=== PATIENT | male | born 2000 | race Caucasian/White ===

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

== ENCOUNTER 2020-06-22 15:11 | Emergency (ER) | payer OTHER ==
[2020-06-22 15:17] VITALS: TEMP 98.6
[2020-06-22] MEDS ORDERED: HYDROmorphone 1 MG/ML 1 ML SYRINGE IM STA (15:46)
--- NOTE | 2020-06-22 15:49 | ED ---
Lower Extremity Injury HPI - General Chief Complaint: Extremity Injury, Lower Stated Complaint: [facility] - lt leg injury Time Seen by Provider: 06/22/20 15:30 Source: patient, RN notes reviewed Mode of arrival: wheelchair Limitations: no limitations - History of Present Illness Initial Comments: 19-year-old male presents emergency Department chief complaint left-sided leg injury. Patient states she was on outpatient machinery which she backed up into another piece of machinery. Patient complains of left foot and ankle pain. Patient states her swelling. No paresthesias. Patient has an abrasion by his knee which is not painful. Patient states his difficulty and weight secondary to pain no paresthesias. No other injuries noted. No prior fractures. - Related Data Home Medications Medication Instructions Recorded Confirmed guanFACINE HCL [Intuniv] 2 mg PO DAILY 09/29/16 09/29/16 Previous Rx's Medication Instructions Recorded Ibuprofen [Motrin] 600 mg PO Q8HR PRN #20 tab 06/22/20 Allergies Allergy/AdvReac Type Severity Reaction Status Date / Time No Known Allergies Allergy Verified 06/22/20 15:17 Review of Systems ROS Statement: Those systems with pertinent positive or pertinent negative responses have been documented in the HPI. ROS Other: All systems not noted in ROS Statement are negative. Past Medical History Past Medical History: Renal Disease History of Any Multi-Drug Resistant Organisms: None Reported Past Surgical History: Appendectomy Additional Past Surgical History / Comment(s): kidney stones Past Psychological History: No Psychological Hx Reported Smoking Status: Current every day smoker Past Alcohol Use History: None Reported Past Drug Use History: Marijuana General Exam Limitations: no limitations General appearance: alert, in no apparent distress Head exam: Present: atraumatic, normocephalic, normal inspection Respiratory exam: Present: normal lung sounds bilaterally. Absent: respiratory distress, wheezes, rales, rhonchi, stridor Cardiovascular Exam: Present: normal rhythm, tachycardia, normal heart sounds. Absent: systolic murmur, diastolic murmur, rubs, gallop, clicks Extremities exam: Present: other (There is an abrasion just proximal to the left knee patient's full range of motion nontender, there is moderate swelling and tenderness the distal tib-fib over the malleoli region and distal foot. Neurovascular intact) Course Vital Signs 06/22/20 15:12 Temperature 98.6 F Pulse Rate 115 H Respiratory 22 Rate Blood Pressure 180/79 O2 Sat by Pulse 98 Oximetry Medical Decision Making - Medical Decision Making X-rays were reviewed there are no acute fracture. Patient has leg contusion, ankle sprain. Patient's will be discharged in stable condition return parameters were discussed. Disposition Clinical Impression: Contusion of left leg, Ankle sprain Disposition: HOME SELF-CARE Condition: Stable Instructions (If sedation given, give patient instructions): Ankle Sprain (ED) Additional Instructions: Please return to the Emergency Department if symptoms worsen or any other concerns. Prescriptions: Ibuprofen [Motrin] 600 mg PO Q8HR PRN #20 tab PRN Reason: Pain Is patient prescribed a controlled substance at d/c from ED?: No Referrals: None,Stated [Primary Care Provider] - 1-2 days Kranthi Friedman MD [STAFF PHYSICIAN] - 1-2 days Time of Disposition: 16:25
--- NOTE | 2020-06-22 16:22 | XR ---
EXAMINATION TYPE: XR ankle complete LT DATE OF EXAM: 06/22/2020 COMPARISON: NONE HISTORY: Pain FINDINGS: Three views of the ankle demonstrate the ankle mortise to be intact and symmetric. The joint spaces are preserved. The osseous structures are intact. IMPRESSION: 1. No definite acute fracture or dislocation, if symptoms persist follow-up study in 7 to 10 days wou ld be suggested.
--- NOTE | 2020-06-22 16:22 | XR ---
EXAMINATION TYPE: XR foot complete LT DATE OF EXAM: 06/22/2020 COMPARISON: NONE HISTORY: Pain TECHNIQUE: Three views are submitted. FINDINGS: The osseous structures are intact. There is no acute fracture or dislocation. Joint spaces are p reserved. Pes planus deformity. IMPRESSION: 1. No acute fracture or dislocation. If symptoms persist, follow-up exam in 7 to 10 days could be ob tained.
[2020-06-22] MEDS ORDERED: ACET/COD 300 MG/30 MG STARTER PACK 6 TAB BTL PO STA (16:25)
[2020-06-22 16:59] VITALS: BP 169/70; PULSE 75; RESP 18
== END 2020-06-22 16:59 | disposition home or self-care (01) ==
LOC: EC 15:11
DX: S93.402A Sprain of unspecified ligament of left ankle, initial encounter (principal); S80.12XA Contusion of left lower leg, initial encounter; F17.200 Nicotine dependence, unspecified, uncomplicated; W22.09XA Striking against other stationary object, initial encounter; Y92.69 Other specified industrial and construction area as the place of occurrence of the external cause; Y99.0 Civilian activity done for income or pay
CPT/HCPCS: 73610; 73630; 99283; 96372; J1170

== ENCOUNTER 2021-09-26 03:35 | Emergency (ER) | payer OTHER ==
[2021-09-26 03:41] VITALS: BP 154/66; PULSE 111; RESP 20; TEMP 98.3
--- NOTE | 2021-09-26 04:17 | XR ---
EXAMINATION TYPE: XR forearm RT DATE OF EXAM: 09/26/2021 COMPARISON: NONE HISTORY: Foreign body TECHNIQUE: 2 views FINDINGS: There is a somewhat rounded 12 mm radiopaque foreign body projected in the soft tissues pos terior to the distal ulna. The elbow joint and wrist joint appear intact. The remainder of the exam i s unremarkable. IMPRESSION: Superficial foreign body in the posterior distal right forearm.
[2021-09-26] MEDS ORDERED: LIDOCAINE 1% INJ 10MG/ML (20 ML MDV) SQ ONE (04:24)
--- NOTE | 2021-09-26 04:43 | ED ---
Wound/Laceration HPI - General Chief Complaint: Wound/Laceration Stated Complaint: Right wrist injury Time Seen by Provider: 09/26/21 04:06 Source: patient Mode of arrival: ambulatory Limitations: no limitations - History of Present Illness Initial Comments: This patient is 20-year-old man who states that he went to sleep glass object off a table using his forearm and it broke resulting in laceration to the forearm. Onset/Timin -: hour(s) Extremity Location: Right: Forearm Place: home Patient Tetanus UTD: Yes Context: accidental Associated Symptoms: none - Related Data Home Medications Medication Instructions Recorded Confirmed No Known Home Medications 09/26/21 09/26/21 Allergies Allergy/AdvReac Type Severity Reaction Status Date / Time No Known Allergies Allergy Verified 09/26/21 03:41 Review of Systems ROS Statement: Those systems with pertinent positive or pertinent negative responses have been documented in the HPI. ROS Other: All systems not noted in ROS Statement are negative. Constitutional: Denies: fever, chills Past Medical History Past Medical History: Renal Disease History of Any Multi-Drug Resistant Organisms: None Reported Past Surgical History: Appendectomy Additional Past Surgical History / Comment(s): kidney stones Past Psychological History: No Psychological Hx Reported Smoking Status: Current every day smoker Past Alcohol Use History: None Reported Past Drug Use History: Marijuana General Exam Limitations: no limitations General appearance: alert, in no apparent distress Extremities exam: Present: other (Stellate laceration right forearm. There is glass foreign body evident.) Skin exam: Present: warm, dry, normal color, other (Laceration as above). Absent: rash Course Vital Signs 09/26/21 03:38 Temperature 98.3 F Pulse Rate 111 H Respiratory 20 Rate Blood Pressure 154/66 O2 Sat by Pulse 99 Oximetry Procedures - Laceration Laceration #1 Consent Obtained: verbal consent Indication: laceration Site: upper extremity Description: stellate Depth: simple, single layer Anesthetic Used: lidocaine 1% Anesthesia Technique: local infiltration Pre-repair: foreign body removed Type of Sutures: nylon Size of Sutures: 4-0 Number of Sutures: 7 Technique: simple, interrupted Patient Tolerated Procedure: well, no complications Disposition Clinical Impression: Laceration, Foreign body (FB) in soft tissue Disposition: HOME SELF-CARE Condition: Good Instructions (If sedation given, give patient instructions): Laceration (ED), Soft Tissue Foreign Body (ED) Is patient prescribed a controlled substance at d/c from ED?: No Referrals: None,Stated [Primary Care Provider] - 1-2 days Maximiliano Garsia MD [STAFF PHYSICIAN] - 1-2 days
[2021-09-26] MEDS ORDERED: BACITRACIN OINT 1 EACH PACKET TOPICAL ONE (05:10)
== END 2021-09-26 05:27 | disposition home or self-care (01) ==
LOC: EC 03:35
DX: S51.821A Laceration with foreign body of right forearm, initial encounter (principal); F17.200 Nicotine dependence, unspecified, uncomplicated; F12.90 Cannabis use, unspecified, uncomplicated; W25.XXXA Contact with sharp glass, initial encounter
CPT/HCPCS: 73090; 99283; 12031; J2001

== ENCOUNTER 2024-03-29 23:58 | Emergency (ER) | payer SELFPAY ==
[2024-03-30 00:01] VITALS: TEMP 98
--- NOTE | 2024-03-30 00:40 | ED ---
Upper Extremity HPI - General Source: patient, RN notes reviewed Mode of arrival: ambulatory Limitations: no limitations <Marzena Angeles - Last Filed: 03/30/24 05:14> <Bill Rosales - Last Filed: 04/01/24 06:55> - General Chief Complaint: Extremity Injury, Upper Stated Complaint: ELBOW/ARM PAIN Time Seen by Provider: 03/30/24 00:38 - History of Present Illness Initial Comments: 23-year-old male presenting for right elbow injury 1 hour ago. States he was wrestling with his nephew and his nephew accidentally hit him in the elbow. He felt immediate pain in the right elbow and is having difficulty moving his elbow. Denies numbness or tingling. (Marzena Angeles) - Related Data Home Medications Medication Instructions Recorded Confirmed No Known Home Medications 09/26/21 09/26/21 Allergies Allergy/AdvReac Type Severity Reaction Status Date / Time No Known Allergies Allergy Verified 03/30/24 00:01 Review of Systems ROS Other: All systems not noted in ROS Statement are negative. <Marzena Angeles - Last Filed: 03/30/24 05:14> ROS Other: All systems not noted in ROS Statement are negative. <Bill Rosales - Last Filed: 04/01/24 06:55> ROS Statement: Those systems with pertinent positive or pertinent negative responses have been documented in the HPI. Past Medical History Past Medical History: Renal Disease History of Any Multi-Drug Resistant Organisms: None Reported Past Surgical History: Appendectomy Additional Past Surgical History / Comment(s): kidney stones Past Psychological History: No Psychological Hx Reported Smoking Status: Current every day smoker Past Alcohol Use History: None Reported Past Drug Use History: Marijuana <Marzena Angeles - Last Filed: 03/30/24 05:14> General Exam Limitations: no limitations General appearance: alert, in no apparent distress Head exam: Present: atraumatic, normocephalic, normal inspection Right Upper Arm exam: Present: normal inspection, full ROM. Absent: tenderness, swelling Elbow exam: Present: full ROM, tenderness, swelling Forearm Wrist exam: Present: normal inspection, full ROM. Absent: tenderness, swelling Hand Wrist exam: Present: normal inspection, full ROM. Absent: tenderness, swelling Vascular: Present: normal capillary refill, radial pulse. Absent: vascular compromise (Sensation intact) <Marzena Angeles - Last Filed: 03/30/24 05:14> Course Vital Signs 03/29/24 03/30/24 23:59 04:01 Temperature 98 F Pulse Rate 66 48 L Respiratory 18 22 Rate Blood Pressure 158/54 169/96 O2 Sat by Pulse 100 100 Oximetry Medical Decision Making <Marzena Angeles - Last Filed: 03/30/24 05:14> - Medical Decision Making Was pt. sent in by a medical professional or institution (, [facility], BUILDING CERTIFIER, urgent care, hospital, or intermediate...) When possible be specific @ -No Did you speak to anyone other than the patient for history (EMS, parent, family, police, friend...)? What history was obtained from this source @ -No Did you review nursing and triage notes (agree or disagree)? Why? @ -I reviewed and agree with nursing and triage notes Were old charts reviewed (outside hosp., previous admission, EMS record, old EKG, old radiological studies, urgent care reports/EKG's, intermediate records)? Report findings @ -No old charts were reviewed Differential Diagnosis (chest pain, altered mental status, abdominal pain women, abdominal pain men, vaginal bleeding, weakness, fever, dyspnea, syncope, headache, dizziness, GI bleed, back pain, seizure, CVA, palpatations, mental health, musculoskeletal)? @ -Differential Musculoskeletal Muscular strain, contusion, ligament sprain, fracture, arthritis, septic arthritis, bursitis, cellulitis, muscle spasm, nerve compression, DVT, arterial occlusion, herpes zoster, electrolyte abnormality, tumor.... This is not meant to be in all inclusive list EKG interpreted by me (3pts min.). @ -None X-rays interpreted by me (1pt min.). @ -X-ray of right elbow reveals no acute process, there is mild soft tissue swelling CT interpreted by me (1pt min.). @ -None done U/S interpreted by me (1pt. min.). @ -None done What testing was considered but not performed or refused? (CT, X-rays, U/S, labs)? Why? @ -None What meds were considered but not given or refused? Why? @ -None Did you discuss the management of the patient with other professionals (professionals i.e. , [facility], BUILDING CERTIFIER, lab, RT, psych nurse, social service coordinator, dye range operator, teacher, residential care officer, manager rn case)? Give summary @ -No Was smoking cessation discussed for >3mins.? @ -No Was critical care preformed (if so, how long)? @ -No Were there social determinants of health that impacted care today? How? (Homelessness, low income, unemployed, alcoholism, drug addiction, transportation, low edu. Level, literacy, decrease access to med. care, usp, rehab)? @ -No Was there de-escalation of care discussed even if they declined (Discuss DNR or withdrawal of care, Hospice)? DNR status @ -No What co-morbidities impacted this encounter? (DM, HTN, Smoking, COPD, CAD, Cancer, CVA, ARF, Chemo, Hep., AIDS, mental health diagnosis, sleep apnea, morbid obesity)? @ -None Was patient admitted / discharged? Hospital course, mention meds given and route, prescriptions, significant lab abnormalities, going to OR and other pertinent info. @ -Patient was discharged. Patient was seen and evaluated for right elbow injury 1 hour prior to arrival. Patient is neurovascularly intact. X-ray reveals no acute process. Patient was given IM morphine for pain. Discussed diagnosis of right elbow sprain with patient. Supportive care discussed. Strict return parameters discussed with patient and he is agreeable to plan. Patient was discharged with analgesics. Case was discussed with my ED attending Dr. Rosales. Patient discharged in stable condition. Undiagnosed new problem with uncertain prognosis? @ -No Drug Therapy requiring intensive monitoring for toxicity (Heparin, Nitro, Insulin, Cardizem)? @ -No Were any procedures done? @ -No Diagnosis/symptom? @ -Right elbow sprain Acute, or Chronic, or Acute on Chronic? @ -Acute Uncomplicated (without systemic symptoms) or Complicated (systemic symptoms)? @ -Uncomplicated Side effects of treatment? @ -No Exacerbation, Progression, or Severe Exacerbation? @ -No Poses a threat to life or bodily function? How? (Chest pain, [place], [place], pneumonia, PE, COPD, DKA, ARF, appy, cholecystitis, CVA, Diverticulitis, Homicidal, Suicidal, threat to staff... and all critical care pts) @ -No (Marzena Angeles) Disposition Is patient prescribed a controlled substance at d/c from ED?: No Time of Disposition: 03:53 <Marzena Angeles - Last Filed: 03/30/24 05:14> <Bill Rosales - Last Filed: 04/01/24 06:55> Clinical Impression: Sprain of right elbow Disposition: HOME SELF-CARE Condition: Stable Instructions (If sedation given, give patient instructions): Elbow Sprain (ED) Additional Instructions: Ice and elevate the right elbow. Take anti-inflammatories such as ibuprofen. Please return to the Emergency Department if symptoms worsen or any other concerns. Referrals: None,Stated [Primary Care Provider] - 1-2 days
[2024-03-30] MEDS: MORPHINE SULFATE 4 MG/ML SYRINGE IM STA (00:57)
--- NOTE | 2024-03-30 03:31 | XR ---
EXAM: XR Right Elbow Complete, 3 or More Views CLINICAL HISTORY: ITS.REASON XR Reason: right elbow injury TECHNIQUE: Frontal, lateral and oblique views of the right elbow. COMPARISON: No relevant prior studies available. FINDINGS: Bones/joints: Unremarkable. No acute fracture. No dislocation. Soft tissues: Mild posterior soft tissue swelling. IMPRESSION: Mild posterior soft tissue swelling. No fracture or dislocation.
[2024-03-30] MEDS: ACET/COD 300 MG/30 MG STARTER PACK 6 TAB BTL PO STA (03:59)
[2024-03-30 04:26] VITALS: BP 169/96; PULSE 48; RESP 22
== END 2024-03-30 04:01 | disposition home or self-care (01) ==
LOC: EC 23:58
DX: S53.401A Unspecified sprain of right elbow, initial encounter (principal); F17.200 Nicotine dependence, unspecified, uncomplicated; F12.90 Cannabis use, unspecified, uncomplicated; Y93.72 Activity, wrestling
CPT/HCPCS: 73080; 99283; 96372; J2270

== ENCOUNTER 2025-03-06 01:40 | Emergency (ER) | payer OTHER ==
[2025-03-06 01:48] VITALS: BP 142/77; PULSE 81; RESP 18; TEMP 99.9
--- NOTE | 2025-03-06 02:39 | ED ---
General Adult HPI - General Chief complaint: ENT Stated complaint: sore throat Time Seen by Provider: 03/06/25 01:59 Source: patient, RN notes reviewed Mode of arrival: ambulatory Limitations: no limitations - History of Present Illness Initial comments: 24-year-old male presents to the emergency department for evaluation of sore throat. He notes that this started yesterday. He states that it is painful when he swallows. He denies significant cough. He denies any known fever at home but does report feeling chills. Endorses nasal congestion as well. - Related Data Previous Rx's Medication Instructions Recorded Amoxicillin 875 mg PO Q12HR #20 tablet 03/06/25 Allergies Allergy/AdvReac Type Severity Reaction Status Date / Time No Known Allergies Allergy Verified 03/06/25 01:49 Review of Systems ROS Statement: Those systems with pertinent positive or pertinent negative responses have been documented in the HPI. ROS Other: All systems not noted in ROS Statement are negative. Past Medical History Past Medical History: Renal Disease History of Any Multi-Drug Resistant Organisms: None Reported Past Surgical History: Appendectomy Additional Past Surgical History / Comment(s): kidney stones Past Psychological History: No Psychological Hx Reported Smoking Status: Current every day smoker Past Alcohol Use History: None Reported Past Drug Use History: Marijuana General Exam Limitations: no limitations General appearance: alert, in no apparent distress Head exam: Present: atraumatic, normocephalic, normal inspection Eye exam: Present: normal appearance, PERRL, EOMI. Absent: scleral icterus, conjunctival injection, periorbital swelling ENT exam: Absent: normal oropharynx (Erythematous oropharynx with tonsillar exudate) Neck exam: Present: normal inspection. Absent: tenderness, meningismus, lymphadenopathy Respiratory exam: Present: normal lung sounds bilaterally. Absent: respiratory distress, wheezes, rales, rhonchi, stridor Cardiovascular Exam: Present: regular rate, normal rhythm, normal heart sounds. Absent: systolic murmur, diastolic murmur, rubs, gallop, clicks GI/Abdominal exam: Present: soft. Absent: distended, tenderness, guarding, rebound, rigid Neurological exam: Present: alert, oriented X3 Psychiatric exam: Present: normal affect, normal mood Skin exam: Present: warm, dry, intact, normal color. Absent: rash Course Vital Signs 03/06/25 01:46 Temperature 99.9 F H Pulse Rate 81 Respiratory 18 Rate Blood Pressure 142/77 O2 Sat by Pulse 98 Oximetry Medical Decision Making - Medical Decision Making Was pt. sent in by a medical professional or institution (VERONICA Arceo, PRINCIPAL STATISTICAL PROGRAMMER, urgent care, hospital, or correction...) When possible be specific @ -No Did you speak to anyone other than the patient for history (EMS, parent, family, police, friend...)? What history was obtained from this source @ -No Did you review nursing and triage notes (agree or disagree)? Why? @ -I reviewed and agree with nursing and triage notes Were old charts reviewed (outside hosp., previous admission, EMS record, old EKG, old radiological studies, urgent care reports/EKG's, correction records)? Report findings @ -No old charts were reviewed Differential Diagnosis (chest pain, altered mental status, abdominal pain women, abdominal pain men, vaginal bleeding, weakness, fever, dyspnea, syncope, headache, dizziness, GI bleed, back pain, seizure, CVA, palpatations, mental health, musculoskeletal)? @ -Differential Fever: Pneumonia, viral URI, endocarditis, myocarditis, pericarditis, otitis, sinusitis, peritonsillar Abscess, retropharyngeal Abscess, epiglottitis, peritonitis, appendicitis, Emma cystitis, diverticulitis, hepatitis, colitis, UTI, PID, TOA, pyelonephritis, prostatitis, epididymitis, meningitis, enc ephalitis, pulmonary embolism, CVA, thyroid storm, pancreatitis, adrenal crisis, cavernous sinus thrombosis, this is not meant to be an all-inclusive list. EKG interpreted by me (3pts min.). @ -None X-rays interpreted by me (1pt min.). @ -None done CT interpreted by me (1pt min.). @ -None done U/S interpreted by me (1pt. min.). @ -None done What testing was considered but not performed or refused? (CT, X-rays, U/S, labs)? Why? @ -None What meds were considered but not given or refused? Why? @ -None Did you discuss the management of the patient with other professionals (professionals i.e. VERONICA Arceo, PRINCIPAL STATISTICAL PROGRAMMER, lab, RT, psych nurse, nursing home social worker, lead embedded software engineer, teacher, staff weapons officer, top case assembler)? Give summary @ -No Was smoking cessation discussed for >3mins.? @ -No Was critical care preformed (if so, how long)? @ -No Were there social determinants of health that impacted care today? How? (Homelessness, low income, unemployed, alcoholism, drug addiction, transportation, low edu. Level, literacy, decrease access to med. care, senior living, rehab)? @ -No Was there de-escalation of care discussed even if they declined (Discuss DNR or withdrawal of care, Hospice)? DNR status @ -No What co-morbidities impacted this encounter? (DM, HTN, Smoking, COPD, CAD, Cancer, CVA, ARF, Chemo, Hep., AIDS, mental health diagnosis, sleep apnea, morbid obesity)? @ -None Was patient admitted / discharged? Hospital course, mention meds given and route, prescriptions, significant lab abnormalities, going to OR and other pertinent info. @ -Discharge. Patient presents emergency department for evaluation of sore throat. Patient was tested for strep, COVID, influenza, RSV which were negative. Throat culture was obtained. I did offer heterophile testing for the patient but he declined. Based on the presentation, patient will be treated for strep throat while the throat culture is pending. He is also provided dose of steroids and antipyretics in the emergency department. He will be discharged home. He is understanding agreeable to plan. Patient stable at time of discharge. Case discussed with Dr. Lopez Undiagnosed new problem with uncertain prognosis? @ -No Drug Therapy requiring intensive monitoring for toxicity (Heparin, Nitro, Insulin, Cardizem)? @ -No Were any procedures done? @ -No Diagnosis/symptom? @ -Pharyngitis Acute, or Chronic, or Acute on Chronic? @ -Acute Uncomplicated (without systemic symptoms) or Complicated (systemic symptoms)? @ -Uncomplicated Side effects of treatment? @ -No Exacerbation, Progression, or Severe Exacerbation? @ -No Poses a threat to life or bodily function? How? (Chest pain, [place], [place], pneumonia, PE, COPD, DKA, ARF, appy, cholecystitis, CVA, Diverticulitis, Homicidal, Suicidal, threat to staff... and all critical care pts) @ -No - Lab Data Lab Results 03/06/25 03/06/25 Range/Units 01:50 01:50 Influenza Type A (PCR) Not Detected (Not Detectd) Influenza Type B (PCR) Not Detected (Not Detectd) RSV (PCR) Not Detected (Not Detectd) SARS-CoV-2 (PCR) Not Detected (Not Detectd) Group A Strep (PCR) NOT DETECTED (Not Detectd) Disposition Clinical Impression: Pharyngitis Disposition: HOME SELF-CARE Condition: Stable Instructions (If sedation given, give patient instructions): Pharyngitis (ED) Additional Instructions: Utilize acetaminophen and ibuprofen as needed for symptoms. production support manager antibiotics and take to completion. Follow-up with your primary care provider. Return to the emergency department for new or worsening symptoms. Prescriptions: Amoxicillin 875 mg PO Q12HR #20 tablet Is patient prescribed a controlled substance at d/c from ED?: No Referrals: None,Stated [Primary Care Provider] - 1-2 days
[2025-03-06 02:42] LABS: Influenza A Not Detected (Not Detectd); Influenza B Not Detected (Not Detectd); RSV Not Detected (Not Detectd)
[2025-03-06] MEDS: AMOXICILLIN 875 MG TAB PO STA (03:44)
[2025-03-06] MEDS: dexAMETHasone 2 MG TAB PO STA (03:45)
[2025-03-06] MEDS: ACETAMINOPHEN TAB 500 MG TAB PO STA (03:45)
[2025-03-06] MEDS: LIDOCAINE VISCOUS 2% 15 ML CUP PO ONE (03:46)
== END 2025-03-06 03:50 | disposition home or self-care (01) ==
LOC: EC 01:40
DX: J02.9 Acute pharyngitis, unspecified (principal); F17.200 Nicotine dependence, unspecified, uncomplicated
CPT/HCPCS: 87651; 87070; 87636; 99282; J8540